=== PATIENT | female | born 1935 | race Caucasian/White ===

== ENCOUNTER → 2016-11-30 | Outpatient (CLI) | payer MEDICARE, OTHER ==
[~2016-11-30] MED LIST: ADVAIR 250-501 EACH INH; CALAN SR GENER120 MG PO; CALCIUM + VITA1 EACH PO; CITRACAL+D(315M1 TAB PO; FLONASE 50 MCG/16 GM NOSE; NEXIUM40 MG PO; PROAIR HFA8.5 GM INH; PULMICORT FLE180 MCG INH; TYLENOL EXTRA500 MG PO; VITAMIN D-32000 UNI1 PO; ZYRTEC10 M3 PO
== END | disposition disaster alternative care site (69) ==
LOC: GBCOE 13:01
DX: Z12.31 Encounter for screening mammogram for malignant neoplasm of breast (principal)
CPT/HCPCS: G0202

== ENCOUNTER → 2017-05-03 | Outpatient (CLI) | payer MEDICARE, OTHER | END | disposition disaster alternative care site (69) | LOC: GRAD 10:56 | DX: R10.9 Unspecified abdominal pain (principal); N28.89 Other specified disorders of kidney and ureter; Z90.49 Acquired absence of other specified parts of digestive tract ==

== ENCOUNTER → 2017-06-08 | Outpatient (CLI) | payer MEDICARE, OTHER | END | disposition disaster alternative care site (69) | LOC: GRAD 13:29 | DX: R10.9 Unspecified abdominal pain (principal) | CPT/HCPCS: Q9967 ==